=== PATIENT | female | born 1935 | race Caucasian/White ===

== ENCOUNTER 2019-06-10 03:27 | Inpatient (IN) ==
[2019-06-10] MEDS ORDERED: NS 1,000 ML IV PRN (03:38)
--- NOTE | 2019-06-10 04:19 | PROVIDER DOCUMENTATION ---
HPI-Neurological Disorder - General Chief Complaint: STROKE ALERT Stated Complaint: Stroke like symptoms Time Seen by Provider: 06/10/19 03:38 Source: RN/, EMS Unable to obtain history due to:: other (INCOMPREHENSIBLE SPEECH) Allergies/Adverse Reactions: Patient Allergies Allergy/AdvReac Type Severity Reaction Status Date / Time morphine Allergy Mild Unknown Verified 06/10/19 07:04 Sulfa (Sulfonamide Allergy Mild Unknown Verified 06/10/19 07:04 Antibiotics) zolpidem tartrate * Allergy Mild Unknown Verified 06/10/19 07:04 [From Ambien] Home Medications: Home Medication List Medication Instructions Recorded Confirmed Last Taken Type Aspirin EC 81 mg PO DAILY 01/10/14 06/10/19 05/28/14 08:00 History Clopidogrel [Plavix] 75 mg PO DAILY 01/10/14 06/10/19 05/28/14 08:00 History Pregabalin [Lyrica] 200 mg PO BID 01/10/14 06/10/19 05/28/14 08:00 History Trazodone [Desyrel] 100 mg PO DAILY 01/10/14 06/10/19 05/27/14 20:00 History Insulin Detemir [Levemir Flextouch] 12 units SQ DAILY 12/05/14 06/10/19 Unknown History Rosuvastatin Calcium [Crestor] 5 mg PO QAM 12/05/14 06/10/19 Unknown History Acetaminophen [Tylenol] 650 tab PO PRN PRN 05/24/18 06/10/19 Unknown History Lidocaine 5% Oint [Xylocaine 5% 1 appful TOP 4XDAY 05/24/18 06/10/19 Unknown History Oint] Ropinirole HCl 2 mg PO QHS 05/24/18 06/10/19 Unknown History Spironolactone 25 mg PO DAILY 05/24/18 06/10/19 Unknown History Albuterol Sulfate [Proair Hfa] 8.5 gm INHALATION DAILY PRN PRN 06/10/19 06/10/19 Unknown History Benzonatate [Tessalon] 100 mg PO TID PRN PRN 06/10/19 06/10/19 Unknown History Carboxymethylcellulose Sodium 1 drp OPHTHALMIC (EYE) DAILY 06/10/19 06/10/19 Unknown History [Artificial Tears] Ciprofloxacin HCl [Cipro] 500 mg PO BID 06/10/19 06/10/19 Unknown History Clonidine HCl 0.1 mg PO TID PRN PRN 06/10/19 06/10/19 Unknown History Diclofenac Sodium [Diclo Gel] 1 ea TOPICAL Q6H PRN PRN 06/10/19 06/10/19 Unknown History Docusate Sodium [Colace] 100 mg PO DAILY 06/10/19 06/10/19 Unknown History Guaifenesin [Robafen] 200 mg PO Q4H PRN PRN 06/10/19 06/10/19 Unknown History Lisinopril/Hydrochlorothiazide 10 mg PO DAILY 06/10/19 06/10/19 Unknown History [Lisinopril-Hctz 20-25 mg Tab] Melatonin 3 mg PO QHS 06/10/19 06/10/19 Unknown History Memantine HCl 5 mg PO BID 06/10/19 06/10/19 Unknown History Metoprolol Succinate 25 mg PO DAILY 06/10/19 06/10/19 Unknown History Protein Hydrolysate,Milk [Liquid 30 ml PO BID 06/10/19 06/10/19 Unknown History Protein Fortifier] Rivastigmine 9.5 mg ORDERED DAILY 06/10/19 06/10/19 06/10/19 History - History of Present Illness-Neuro Nature of Presenting Problem: A 84 y/o female with PMH of HTN, CAD, DM, CVA with out residual deficits, hyperlipidemia, dementia presents with EMS with c/o R upper extremity weakness, facial weakness. Per EMS they were called for respiratory distress, on arrival they found the pt to be saturating in high 90's on RA and lungs were clear but they found her to have facial droop and RUE weakness. The speech was slurred. Per EMS at baseline pt is ambulatory and participates in all activities at [place]. Pt's speech is incomprehensible. Review of Systems - Adult - REVIEW OF SYSTEMS - ADULT ROS:: unobtainable per condition Constitutional: reports: see HPI Past History - Adult - PAST MEDICAL HISTORY-ADULT Review of Records: reports: Nursing Assessment Review, Medications Reviewed, Social history reviewed & non-contributory. Cardiovascular: reports: HTN, [place] Respiratory: reports: denies history Gastrointestinal: reports: denies history Obstetrical/Gynecological: reports: denies history Genitourinary: reports: denies history Musculoskeletal: reports: denies history Neurological: reports: CVA Endocrine/Immune: reports: Diabetes Other Conditions: reports: denies history - PRIOR SURGERIES/PROCEDURES Surgical/Procedure History: reports: hysterectomy, BTL, other, appendectomy - PRIOR HOSPITALIZATIONS Prior Hospitalizations: reports: none - IMMUNIZATION STATUS Childhood Immunizations: See Nurse Assessment Flu Vaccine: See Nurse Assessment - FAMILY HISTORY Family History: reviewed, not pertinent Physical Exam- Neurological - Physical Exam-Neuro Initial Vital Signs Reviewed: Yes General Appearance: alert, no apparent distress Eye Exam: bilateral eye: normal inspection, PERRL, EOMI HENMT: moist mucous membranes, TMs normal Head Injury: other (Bruise on the R forehead) Neck: supple Respiratory: lungs clear, normal breath sounds, no respiratory distress, no accessory muscle use Cardiovascular: regular rate, rhythm, no edema, no murmur Abdominal Exam: non tender, soft Peripheral Pulses: radial (R): 2+, radial (L): 2+ Extremity: no pedal edema coconut boiler Exam: normal hearing, PERRL, abnormal speech, facial asymmetry, facial droop , facial paresthesias Motor/Sensory: pronator drift (R), weak motor strength RUE Neurologic: abnormal coconut boiler II-XII, facial droop, motor weakness Integumentary: normal color, ecchymosis (multiple over the extremities) Psych/Mental Status: normal mood/affect - Glascow Coma Scale Best Eye Response: (4) open spontaneously Best Verbal Response: (5) oriented Best Motor Response: (6) obeys commands Progress - PLAN OF CARE/RESULTS Progress/Plan/Lab Results: Laboratory Results - last 24 hr 06/10/19 06/10/19 06/10/19 04:11 04:11 04:11 WBC 7.23 RBC 4.36 Hgb 12.9 Hct 38.5 MCV 88.3 MCH 29.6 MCHC 33.5 RDW Std Deviation 13.8 Plt Count 147 MPV 11.6 H Immature Gran % (Auto) 0.3 Neut % (Auto) 72.9 Lymph % (Auto) 14.4 L [place] % (Auto) 9.7 H Eos % (Auto) 2.6 Baso % (Auto) 0.1 Immature Gran # (Auto) 0.02 Neut # (Auto) 5.27 Lymph # (Auto) 1.04 L [place] # (Auto) 0.70 H Eos # (Auto) 0.19 Baso # (Auto) 0.01 PT 13.7 INR 1.04 PTT (Actin FS) 29.5 Sodium 132 L Potassium 4.7 Chloride 95 L Carbon Dioxide 25 Anion Gap 12 BUN 24 H Creatinine 1.2 H Estimated GFR/1.73 m2 43 BUN/Creatinine Ratio 20 Glucose 168 H POC Glucose Calculated Osmolality 272 Calcium 9.5 Total Bilirubin 0.98 AST 14 ALT 8 L Alkaline Phosphatase 65 Troponin T Total Protein 6.3 Albumin 3.7 Globulin 2.6 Albumin/Globulin Ratio 1.4 Urine Source Urine Color Urine Turbidity Urine pH Ur Specific [place] Urine Protein Ur Glucose (Stick) Ur Ketones (Stick) Urine Blood Urine Nitrite Urine Bilirubin Urobilinogen Dipstick Urine Leukocytes Urine WBC (Auto) Urine RBC (Auto) U Epithel Cells (Auto) Urine Bacteria (Auto) Urine Opiates Screen Ur Oxycodone Screen Ur Methadone, Qual Ur Barbiturates Screen Ur Phencyclidine Scrn Ur Amphetamines Screen U Benzodiazepines Scrn Urine Cocaine Screen U Cannabinoids Screen 06/10/19 06/10/19 06/10/19 04:11 04:11 04:26 WBC RBC Hgb Hct MCV MCH MCHC RDW Std Deviation Plt Count MPV Immature Gran % (Auto) Neut % (Auto) Lymph % (Auto) [place] % (Auto) Eos % (Auto) Baso % (Auto) Immature Gran # (Auto) Neut # (Auto) Lymph # (Auto) [place] # (Auto) Eos # (Auto) Baso # (Auto) PT INR PTT (Actin FS) Sodium Potassium Chloride Carbon Dioxide Anion Gap BUN Creatinine Estimated GFR/1.73 m2 BUN/Creatinine Ratio Glucose POC Glucose 166 H Calculated Osmolality Calcium Total Bilirubin AST ALT Alkaline Phosphatase Troponin T < 0.010 Total Protein Albumin Globulin Albumin/Globulin Ratio Urine Source CATH Urine Color YELLOW Urine Turbidity HAZY Urine pH 6.5 Ur Specific [place] 1.013 Urine Protein TRACE A Ur Glucose (Stick) NEGATIVE Ur Ketones (Stick) NEGATIVE Urine Blood SMALL A Urine Nitrite POSITIVE A Urine Bilirubin NEGATIVE Urobilinogen Dipstick NORMAL Urine Leukocytes LARGE A Urine WBC (Auto) TNTC A Urine RBC (Auto) <10 U Epithel Cells (Auto) <10 Urine Bacteria (Auto) 4+ Urine Opiates Screen Ur Oxycodone Screen Ur Methadone, Qual Ur Barbiturates Screen Ur Phencyclidine Scrn Ur Amphetamines Screen U Benzodiazepines Scrn Urine Cocaine Screen U Cannabinoids Screen 06/10/19 04:26 WBC RBC Hgb Hct MCV MCH MCHC RDW Std Deviation Plt Count MPV Immature Gran % (Auto) Neut % (Auto) Lymph % (Auto) [place] % (Auto) Eos % (Auto) Baso % (Auto) Immature Gran # (Auto) Neut # (Auto) Lymph # (Auto) [place] # (Auto) Eos # (Auto) Baso # (Auto) PT INR PTT (Actin FS) Sodium Potassium Chloride Carbon Dioxide Anion Gap BUN Creatinine Estimated GFR/1.73 m2 BUN/Creatinine Ratio Glucose POC Glucose Calculated Osmolality Calcium Total Bilirubin AST ALT Alkaline Phosphatase Troponin T Total Protein Albumin Globulin Albumin/Globulin Ratio Urine Source Urine Color Urine Turbidity Urine pH Ur Specific [place] Urine Protein Ur Glucose (Stick) Ur Ketones (Stick) Urine Blood Urine Nitrite Urine Bilirubin Urobilinogen Dipstick Urine Leukocytes Urine WBC (Auto) Urine RBC (Auto) U Epithel Cells (Auto) Urine Bacteria (Auto) Urine Opiates Screen NONE DETECTED Ur Oxycodone Screen NONE DETECTED Ur Methadone, Qual NONE DETECTED Ur Barbiturates Screen NONE DETECTED Ur Phencyclidine Scrn NONE DETECTED Ur Amphetamines Screen NONE DETECTED U Benzodiazepines Scrn NONE DETECTED Urine Cocaine Screen NONE DETECTED U Cannabinoids Screen NONE DETECTED Orders Category Date Time Status Admit - [facility] Routine AdmDCTranf 06/10/19 07:20 Active Activity - Strict Bedrest Q1D Care 06/10/19 07:20 Active Apply Mechanical Device [QM] ORDERED Care 06/10/19 07:20 Active Aspiration Precautions DIRECTED Care 06/10/19 07:20 Active Cardiac Monitoring DIRECTED Care 06/10/19 03:39 Completed Elevate Head of Bed DIRECTED Care 06/10/19 07:20 Active FSBS/Accucheck Result AC + HS Care 06/10/19 07:20 Active Finger Stick Blood Sugar (ED) DIRECTED Care 06/10/19 03:39 Completed Jenkins Cath Insertion ORDERED Care 06/10/19 03:39 Active IV Insertion ORDERED Care 06/10/19 07:20 Active Intake and Output-Strict ORDERED Care 06/10/19 07:20 Active Misc. NRSG Communication Order DIRECTED Care 06/10/19 03:39 Completed Neurological Check Q1h Care 06/10/19 07:20 Active Nursing- MD Consult Request ROUTINE Care 06/10/19 07:20 Completed Saline Loc NOW Care 06/10/19 03:39 Active Vital Signs Order Q 4-HR ASSESS Care 06/10/19 07:20 Active Z-Document. for Tele Applied ORDERED Care 06/10/19 07:20 Active Physician/Provider Consults Routine Cons 06/10/19 07:20 Ordered Social Service Consult Routine Cons 06/10/19 07:20 Active NPO Diet 06/10/19 Lunch Completed CHEST-PORTABLE [RAD] Stat Exams 06/10/19 03:[address] HEAD/C-SPINE W/O CONTRAST [CT] Stat Exams 06/10/19 03:30 Completed MRI BRAIN W/WO CONTRAST [MRI] Routine Exams 06/11/19 07:00 Ordered CBC WITH ELECTRONIC DIFF [HEME] Stat Lab 06/10/19 04:11 Completed COMPREHENSIVE METABOLIC PANEL [CHEM] Stat Lab 06/10/19 04:11 Completed LIPID PROFILE W/DIR LDL [LIPIDS] Routine Lab 06/11/19 06:00 Ordered PROTIME WITH INR [COAG] Stat Lab 06/10/19 04:11 Completed PTT [COAG] Stat Lab 06/10/19 04:11 Completed TROPONIN T Stat Lab 06/10/19 04:11 Completed URINALYSIS W/POSS RFLX CULT [URINALYSIS] Stat Lab 06/10/19 04:26 Completed URINE CULTURE [RM] Routine Lab 06/10/19 04:56 Received URINE DRUG SCREEN Stat Lab 06/10/19 04:26 Completed 0.9% Sodium Chloride Inj [Ns] 1,000 ml Med 06/10/19 07:20 Active IV 75 mls/hr 0.9% Sodium Chloride Inj [Ns] 1,000 ml Med 06/10/19 03:38 Discontinued IV 999 mls/hr Acetaminophen [Tylenol] Med 06/10/19 07:20 Active 650 mg PO Q6H PRN PRN Albuterol Sulfate Inhaler [Ventolin Hfa] Med 06/10/19 07:20 Active 1 puff INH DAILY PRN PRN Aspirin Med 06/11/19 09:00 Active 325 mg PO DAILY Aspirin Med 06/10/19 05:33 Discontinued 325 mg PO NOW ONE Aspirin EC Med 06/10/19 09:00 Discontinued 81 mg PO DAILY Benzonatate [Tessalon] Med 06/10/19 07:20 Active 100 mg PO TID PRN PRN CefTRIAXONE [Rocephin] 1 gm Med 06/10/19 07:20 Active 0.9% Sodium Chloride Inj [Ns] 50 ml IV Q24H Clonidine [Catapres] Med 06/10/19 07:20 Active 0.1 mg PO TID PRN PRN Clopidogrel [Plavix] Med 06/10/19 09:00 Active 75 mg PO DAILY Docusate Sodium [Colace] Med 06/10/19 09:00 Active 100 mg PO DAILY Insulin Lispro [Humalog] Med 06/10/19 07:20 Active See Protocol SUBQ 0700,1100,1600,2100 Melatonin Med 06/10/19 21:00 Active 3 mg PO QHS Memantine [Namenda] Med 06/10/19 09:00 Active 5 mg PO BID Metoprolol Succinate E.r. [Toprol Xl] Med 06/10/19 09:00 Active 25 mg PO DAILY Ondansetron [Zofran] Med 06/10/19 07:20 Active 4 mg IV Q4H PRN PRN Patient's Own Med Med 06/10/19 09:00 Active 1 each PO BID Polyvinyl Alcohol Eye Drops [Tearisol Oph Solution] Med 06/10/19 09:00 Active 0 ml BOTH EYES DAILY Pregabalin [Lyrica] Med 06/10/19 09:00 Active 200 mg PO BID ROSUVAstatin [Crestor] Med 06/10/19 09:00 Active 5 mg PO QAM Rivastigmine [Exelon 9.5MG/24Hrs] Med 06/10/19 09:00 Active 1 each TD DAILY Ropinirole [Requip] Med 06/10/19 21:00 Active 2 mg PO QHS Spironolactone [Aldactone] Med 06/10/19 09:00 Active 25 mg PO DAILY Trazodone [Desyrel] Med 06/10/19 21:00 Active 100 mg PO QPM MDI Treatments Stat Oth 06/10/19 07:20 Completed Oxygen Device Routine Oth 06/10/19 07:20 Completed Telemetry [OM.EQ] Routine Oth 06/10/19 07:20 Active Carotid Ultrasound Routine Ther 06/10/19 07:20 Completed EKG [EKG] Stat Ther 06/10/19 03:39 Draft Echo Spec/Color Doppler Routine Ther 06/10/19 07:20 Completed Physical Therapy Eval/Treatment [OM.PT] Routine Ther 06/10/19 07:20 Active Speech Evaluation [OM.SPT] Routine Ther 06/10/19 07:20 Active Transfer/Admit Order [TRANSFER] Routine Transfer 06/10/19 05:37 Completed Result Diagrams: 06/10/19 04:11 06/10/19 04:11 - EKG 1 Time of EKG reading by physician:: 03:53 EKG Interpretation (*Must complete 3 of following elements*): Normal Rate: 71 [place]: normal QRS: normal AL Interval: normal ST Wave: normal Comments: NSR - CONSULTS/PCP/HOSPITALIST Notification #1 *Consult/PCP/Hospitalist*: d/w Transfer center of Time Discussed: 04:10 Consult Disposition: other (recommended to push images and they will consult neurosurgery and call back.) #2 Consult: d/w Dr Hunt, Neurosurgery , Time Discussed: 04:54 Consult Disposition: other (He reviewed the CT and felt tehre was no need for any surgery, Per him the pt does not have a subdural hematoma. Requested transfer center to [facility].) #3 Consult: d/w Dr Fierro, Neurology at Time Discussed: 17:00 Consult Disposition: Admit (advised admission at [facility], routine stroke up.) Departure - Departure Date of Disposition Decision: 06/10/19 Time of Disposition Decision: 05:15 DIAGNOSIS: CVA (cerebral vascular accident) Disposition: ADMITTED INPATIENT 09 Certified Medical Emergency: Emergent Condition: Stable - Critical Care Note This patient required my direct & personal management of CC.: No Attestation - Physician/ EVER Attestation Patient care was provided by Advanced Practice Provider:: No The physician spent face to face time with patient:: Yes Advanced Practice Provider documentation review:: Supervising physician onsite and consulted in the evaluation and care of this patient. The physician did have a face to face encounter with the patient. - NIH Stroke Scale NIH Type: Initial Evaluation Level of Consciousness: 1-Drowsy, but arousable with minimal stimulation LOC Questions (ask month and age): 2-Both Incorrect LOC Commands (ask to open & close eyes;make a fist, let go): 0-Obeys Both Correctly Best Gaze (horizontal eye movement): 0-Normal Visual (use finger movement, counting or visual threat): 0-No Visual Loss Facial Palsy (show teeth or raise eyebrows & close eyes tght: 1-Minor Paralysis Motor Function-left arm: 0-Normal Motor Function-right arm: 1-Drift Motor Function-left le-Normal Motor Function-right le-Drift Limb Ataxia(okcfyf-[id number]-canbyd, or heel to figueroa): 0-Untestable Sensory(pin prick to face,arms,trunk,legs-compare side/side): 1-Mild to Moderate Decrease in Sensation Best Language(name item/read sentence.Ex-Down to Earth): 1-Mild to Moderate Aphasia Dysarthria(Pt read words or say words Ex.Mama,Tip-Top,Thanks: 2-Near Unintelligible Extinction and Inattention: 0-Normal NIH Total Score: 10
[2019-06-10 04:31] LABS: BASO# 0.01 X1000 (0.0-0.2); BASO% 0.1 % (0.0-0.8); EOS# 0.19 X1000 (0.0-0.7); EOS% 2.6 % (0.0-10.0); HEMATOCRIT 38.5 % (37.0-47.0); HEMOGLOBIN 12.9 g/dL (12.0-16.0); IMM GRAN# 0.02 X1000 (0.0-0.04); IMM GRAN% 0.3 % (0.0-0.5); LYMPH# 1.04 X1000 (1.2-3.4); LYMPH% 14.4 % (20.5-51.1); MCH 29.6 PG (27-31); MCHC 33.5 g/dL (33-37); MCV 88.3 FL (81-99); MONO% 9.7 % (1.7-9.3); MPV 11.6 FL (7.4-10.4); NEUT# 5.27 X1000 (1.4-6.5); NEUT% 72.9 % (42.2-75.2); PLT 147 X1000 (130-400); RBC 4.36 XMIL (4.2-5.4); RDW 13.8 % (11.5-14.5); WBC 7.23 X1000 (4.8-10.8)
[2019-06-10 04:34] LABS: URINE SOURCE CATH
[2019-06-10 04:38] LABS: INR 1.04; PROTIME 13.7 Seconds (11.0-16.0)
[2019-06-10 04:39] LABS: PTT 29.5 Seconds (22.3-41.8)
[2019-06-10 04:47] LABS: UR AMPHETAMINES QUAL NONE DETECTED (NONE DETECT); UR BARBITUATES QUAL NONE DETECTED (NONE DETECT); UR BENZODIAZEPIN QUAL NONE DETECTED (NONE DETECT); UR CANNABINOIDS QUAL NONE DETECTED (NONE DETECT); UR COCAINE QUAL NONE DETECTED (NONE DETECT); UR METHADONE QUAL NONE DETECTED (NONE DETECT); UR OPIATES QUAL NONE DETECTED (NONE DETECT); UR OXYCODONE QUAL NONE DETECTED (NONE DETECT); UR PCP QUAL NONE DETECTED (NONE DETECT)
[2019-06-10 04:48] LABS: ALB/GLOB RATIO 1.4; ALBUMIN 3.7 g/dL (3.5-5.0); CALCIUM 9.5 mg/dL (8.8-10.2); CREATININE 1.2 mg/dL (0.5-0.9); POTASSIUM 4.7 mmol/L (3.5-5.1); TOTAL BILIRUBIN 0.98 mg/dL (0.20-1.00); TOTAL PROTEIN 6.3 g/dL (6.3-8.3)
[2019-06-10 04:50] LABS: BILIRUBIN URINE NEGATIVE (NEGATIVE); BLOOD URINE SMALL (NEGATIVE); COLOR YELLOW; GLUCOSE URINE NEGATIVE (NEGATIVE); KETONE URINE NEGATIVE (NEGATIVE); LEUKOCYTES URINE LARGE (NEGATIVE); NITRITE URINE POSITIVE (NEGATIVE); PH URINE 6.5; PROTEIN URINE TRACE mg/dL (NEGATIVE); SP GRAVITY URINE 1.013; TURBIDITY URINE HAZY (CLEAR); UROBILINOGEN URINE NORMAL (NORMAL)
[2019-06-10 04:52] LABS: UR EPITHELIAL CELLS <10 /HPF (<10); URINE BACTERIA 4+ /HPF; URINE RBC <10 /HPF (<10); URINE WBC TNTC /HPF (<10)
--- NOTE | 2019-06-10 05:21 | EKG Report ---
Test Performed on : 06/10/2019 03:53:12 AM Test Reason : AMS Blood Pressure : / mmHG Vent. Rate : 071 BPM Atrial Rate : 071 BPM P-R Int : 188 ms QRS Dur : 076 ms QT Int : 404 ms P-R-T Axes : 000 -20 027 degrees QTc Int : 439 ms Normal sinus rhythm. Normal ECG When compared with ECG of 24-MAY-2018 16:49, No significant change was found Unconfirmed Result
[2019-06-10] MEDS ORDERED: ASPIRIN PO ONE (05:33)
--- NOTE | 2019-06-10 06:02 | Diag Imaging Result Doc PS360 ---
EXAM : CT HEAD/C-SPINE W/O CONTRAST HISTORY: FALL TECHNIQUE: 1. CT head without contrast 2. CT cervical spine without contrast COMPARISON: 05/24/2018 FINDINGS: Head: No parenchymal hemorrhage. No epidural or subdural hematoma. No subarachnoid hemorrhage. There is prominent atrophy with chronic microvascular ischemic changes. Scattered old lacunar infarcts. No mass identified on this noncontrasted exam. No hydrocephalus. No skull fracture. Cervical spine: There is reversal of the normal curvature. Prominent degenerative changes in the mid and lower cervical spine. No precervical soft tissue swelling. No fracture. At least moderate atherosclerosis in the carotid bulbs. IMPRESSION: CT head: 1. No hemorrhage. No injury. 2. Atrophy with chronic microvascular ischemic changes and old lacunar infarcts. Cervical spine: No acute fracture. A preliminary report was given at 4:01 AM This exam was performed using automated exposure control, adjustment of mA or kV according to patient size, and/or use of iterative reconstruction technique. Electronically signed by Robson Love 06/10/2019 6:00 AM
--- NOTE | 2019-06-10 06:45 | HISTORY AND PHYSICAL ---
CHIEF COMPLAINT: Stroke-like symptoms. HISTORY OF PRESENT ILLNESS: Ms. Zepeda is an 84-year-old female with a history of hypertension, coronary artery disease, diabetes mellitus type 2, previous CVA with residual right- sided deficits, hyperlipidemia and vascular dementia who comes in from [facility] after having new onset right-sided facial droop and expressive aphasia yesterday. She was sent into the emergency room for evaluation. CT scan did reveal what appeared to be a new left-sided CVA. There was originally some concern for possible subdural hematoma; however, the ER provider spoke with Neurosurgery at [facility], Dr. Carlton, I believe, who stated that there was no need for surgery, that it was not a subdural hematoma. They then spoke with Dr. Fierro with Neurology at [facility] who advised regular admission to [facility] for a routine stroke workup. She will be admitted to the medical floor for further evaluation and treatment. PAST MEDICAL HISTORY: See HPI. PREVIOUS SURGICAL HISTORY: 1. Hysterectomy. 2. BTL. 3. Appendectomy. FAMILY HISTORY: This cannot be reviewed due to patient's mentation. SOCIAL HISTORY: Lives at [facility]. No alcohol, tobacco or illicit drugs. ALLERGIES: Morphine, sulfa, and Ambien. HOME MEDICATIONS: A list of all medications has not been reconciled. An order was placed for nursing to reconcile home medications. These will be restarted when appropriate. REVIEW OF SYSTEMS: Fourteen point review of systems conducted with the patient. This was limited related to her mentation. She denies complaint. Pertinent positives per admission are listed above in the HPI. PHYSICAL EXAMINATION: VITAL SIGNS: Temperature 98.6 degrees, pulse 76, respirations 20, blood pressure 161/86, oxygen saturation 96% on room air. GENERAL: 84-year-old female oriented to person, place, somewhat to situation. Disoriented to time. She is clearly confused. She has ripped her IV out. However, she does try to follow most commands. She has slurring of speech and some expressive aphasia. But she is in no acute distress. HEENT: Head is atraumatic, normocephalic. Pupils equal, round and reactive to light. Extraocular eye movement appears to be intact. Sclerae anicteric. Conjunctivae pink. Oral mucosa is dry. Lips are chapped and cracking. She has right-sided facial droop noted. NECK: Supple. No JVD. No thyromegaly. Trachea is midline. No cervical lymphadenopathy. CARDIAC: S1, S2 appreciated. No murmurs, gallops, rubs. LUNGS: Clear to auscultation bilaterally. No rhonchi, wheezes, rales. Symmetrical rise and fall of respirations. ABDOMEN: Soft, nondistended, nontender. Bowel sounds present in all 4 quadrants. Normoactive. No pulsatile mass. No organomegaly. EXTREMITIES: No cyanosis, clubbing or edema. GENITOURINARY: No bladder distention. Patient voids. Otherwise deferred. NEUROLOGICAL: Right-sided davison drift. Right-sided facial droop. Decreased strength in right upper and lower extremities; however, she did have deficits from an old stroke and her baseline is not known. She is roughly 3/5 on right upper and lower and 4/5 left upper and lower extremities. She does have some slurring of speech and mild expressive aphasia. DIAGNOSTIC DATA: CT of the head shows a left acute infarct. Chest x-ray: No infiltrates, edema. Grossly normal. LABORATORY DATA: CBC within normal limits. Sodium 132, potassium 4.7, chloride 95, carbon dioxide 25, BUN 24, creatinine 1.2, glucose 168. Urine leuko esterase positive, nitrate positive, too numerous to count WBCs, 4+ bacteria. ASSESSMENT AND PLAN: 1. Acute left-sided CVA. Consult Neurology. MRI, echocardiogram, carotid ultrasound. Continue 325 aspirin p.o. daily. 2. Urinary tract infection. Rocephin 1 gram q.24 hours. Urine cultures are pending. 3. Hypertension. We will hold antihypertensive, allow for permissive hypertension at this time. We will restart when appropriate. 4. Diabetes mellitus. Fingerstick blood sugar with sliding scale insulin before meals and at bedtime. 5. Hyperlipidemia. Continue statin. Further recommendation per patient's clinical course. Dictated by KHARI Payan for Moy Posey MD cc: KHARI Payan MD
[2019-06-10] MEDS ORDERED: CATAPRES PO PRN (07:20)
[2019-06-10] MEDS ORDERED: ZOFRAN IV PRN (07:20)
[2019-06-10] MEDS ORDERED: VENTOLIN HFA INH PRN (07:20)
[2019-06-10] MEDS ORDERED: TYLENOL PO PRN (07:20)
[2019-06-10] MEDS ORDERED: TESSALON PO PRN (07:20)
--- NOTE | 2019-06-10 07:49 | Diag Imaging Result Doc PS360 ---
EXAM: CHEST-PORTABLE INDICATION: stroke like symptoms TECHNIQUE: One view COMPARISON: 05/24/2018 FINDINGS: There is evidence of prior granulomatous disease, stable. Mild lingular scarring is stable. There is no discrete pleural fluid collection or pneumothorax. The cardiac silhouette is borderline prominent but stable. IMPRESSION: Mild lingular scarring and borderline cardiomegaly. No definite acute chest pathology, otherwise. Electronically signed by Roel Robles 06/10/2019 7:47 AM
[2019-06-10] MEDS ORDERED: ASPIRIN EC PO SCH (09:00)
[2019-06-10] MEDS: HUMALOG SUBQ SCH ×3 (12:04→21:37)
[2019-06-10] MEDS: NS 1,000 ML IV SCH (12:20)
[2019-06-10] MEDS: ROCEPHIN 1 GM in NS 50 ML IV SCH (12:21)
--- NOTE | 2019-06-10 12:26 | CONSULTATION ---
DATE OF CONSULTATION: 06/10/2019 Ms. Zepeda is 84 years old, transferred from the correction with question of recent stroke. She is not able to provide detailed history based on her baseline dementia. History from review of the medical record and from discussion with attentive daughter at the bedside is that she has been forgetful for 6 to 12 months, gradually more prominent in recent months. She was started on rivastigmine patch a few months ago and tolerated that. Rivastigmine dose is 9.5 mg daily now. Memantine was added more recently and she is tolerating memantine 5 mg b.i.d. now. Daughter has not noticed major cognitive improvement with those medicines on board. There is history of prior stroke with right-sided weakness. She was noted to have new right facial drooping and apparent dysphasia yesterday. She presented to the hospital and was admitted. She seems improved today, according to daughter. There is history that she may have been more unsteady with her transfers from bed to chair and commode in recent days. There is evidence of some bruising, raising question of falls, but I do not have any documentation of falling. Daughter believes there was a neurologic change 3 days ago, which was stable over the next few days and then worse on the night prior to admission. Her home medicine list from the correction includes 24 entries. Of these, at least 5 have significant SAMPLE COORDINATOR activity including memantine and rivastigmine as above, ropinirole 2 mg at bedtime, trazodone 100 mg daily, Lyrica 200 mg b.i.d. Vital sign record shows systolic blood pressures 120s-160s. Heart rate has been 60s-70s. She has been afebrile. Lab shows BUN 24, which is a little above baseline. Blood sugars have been 160s. Chemistry otherwise unremarkable. Urine drug screen was all negative. Brain imaging this admission includes noncontrast CT of the head showing some atrophy and microvascular ischemic changes but no evidence of acute infarction or bleeding. There is past history of hypertension, ischemic heart disease, diabetes mellitus type 2, dyslipidemia, and dementia as above. On exam, Ms. Zepeda is supine, awake, alert, attentive. She followed simple commands consistently. She followed commands requiring right/left distinction and digit distinction. She did well with bedside repeating and naming. Her speech is slow and very dysarthric, very difficult to understand but when I know what she is attempting to say, I can understand her words. I did not test her cognitive function. She has full visual dykes tested by confrontational finger counting. Extraocular movements are good horizontally and slightly diminished in upgaze, consistent with age. Facial motility is diminished on the right in an upper motor neuron pattern. Palate is midline. Tongue protrudes consistently to the right. She has good power in the left limbs. Strength grades 3/5 at the right deltoid, 4/5 in the right paper inspector, 3/5 at the right anterior tibialis. Plantar response is silent bilaterally. She reports good pinprick appreciation symmetrically over the limbs. Her responses on proprioception testing were inconsistent bilaterally. I did not test her gait. She did well with left [id number]. She was able to bring her right finger within 6 inches of her nose without evidence of cerebellar deficit. I did not see any tremor. IMPRESSION: 1. Apparent new right hemiparesis. There was report of possible language disturbance earlier but I cannot document dysphasia now. She has marked dysarthria, approaching anarthria, but not definite loss of language function. I do not find vision disturbance or sensory deficit. In light of these relatively pure motor findings, I wonder about a subcortical left hemisphere or brainstem infarction. Negative CT is reassuring but does not exclude acute ischemic infarction. Brain MRI is ordered. In light of her age and clinical course, particularly with baseline dementia, I suspect she will not be a candidate for aggressive management. 2. Baseline dementia. She has tolerated rivastigmine and memantine. 3. Polypharmacy. Daughter has been concerned that patient sometimes appears sluggish and drowsy. We discussed the possibility that medication and combination of medications may sometimes be responsible. No urgent suggestion from a neurology standpoint. I would continue aspirin, continue treating blood pressure cautiously, continue statin, continue rivastigmine and memantine at current doses. Later, memantine dose might be increased. Would continue treating blood sugar aggressively. Further plans will depend on her clinical course and MRI report. Thanks for asking Neurology to see Ms. Zepeda. cc: MD ALEE Gu III
[2019-06-10] MEDS: CRESTOR PO SCH (12:28)
[2019-06-10] MEDS: EXELON 9.5MG/24HRS TD SCH (12:28)
[2019-06-10] MEDS: NAMENDA PO SCH ×2 (12:28→21:36)
[2019-06-10] MEDS: PLAVIX PO SCH (12:28)
[2019-06-10] MEDS: COLACE PO SCH (12:28)
[2019-06-10] MEDS: ALDACTONE PO SCH (12:28)
[2019-06-10] MEDS: TOPROL XL PO SCH (12:28)
[2019-06-10] MEDS: TEARISOL OPH SOLUTION BOTH EYES SCH (12:29)
[2019-06-10] MEDS: PATIENT'S OWN MED PO SCH ×2 (12:30→21:36)
[2019-06-10] MEDS: LYRICA PO SCH ×2 (12:40→21:36)
--- NOTE | 2019-06-10 13:09 | PROGRESS NOTE ---
DATE: 06/10/2019 SUBJECTIVE: The patient is resting comfortably in bed. She does have some right-sided weakness around 3/5. As per the daughter, she had a previous stroke in 2012, but she noticed this past Friday four days ago that she has some facial weakness and slurred speech. Probably, this patient had a new stroke. We did an MRI to corroborate this information due to her right-sided weakness. OBJECTIVE: Vital Signs: Temperature 98 degrees, pulse 67, respiratory rate 20, blood pressure 142/73 and oxygen saturation 98 percent 2 L of nasal cannula. HEENT: Head normocephalic. No trauma. PERRLA. Neck: Supple. No JVD. No masses. Central trachea. Chest: Clear to auscultation. No wheezing. No rales. Abdomen: Soft, nontender, and nondistended. No hepatosplenomegaly. Extremities: No edema. No clubbing. No cyanosis. Neurological: This patient is awake. She is alert. She is following commands. She does have right-sided hemiparesis. I would say 3/5. Sensation has decreased. LABORATORY: WBC 7.2, hemoglobin 12.9, hematocrit 38.5, and platelets 147,000. Sodium 132, potassium 4.7, chloride 95, bicarbonate 25, BUN 24, creatinine 1.2, glucose 168, and calcium 9.5. AST 14, ALT 8, and alkaline phosphatase 65. Urinalysis with leukocytes, small blood, and nitrates with 4+ bacteria. ASSESSMENT AND PLAN: 1. New right hemiparesis, probably due to new stroke on the left brain territory. I need an MRI to corroborate this information. We will continue with the same management for now. Neurology Department on board. 2. Baseline dementia. Continue with rivastigmine and memantine. 3. Polypharmacy. We will try to monitor her medications. We will continue to monitor. 4. Prior history of cerebrovascular accident in 2012. Aware. 5. Generalized weakness, which is not new. Apparently, she is basically bed bound, but she was able to transfer from the bed to the wheelchair. 6. Peripheral neuropathy. Continue with Lyrica. 7. As per the daughter, she has a history of CHF. Aware. We will continue to monitor. We will avoid fluid overload. 8. Urinary tract infection. Continue with ceftriaxone. 9. I had a conversation with the patient and the daughter at the bedside about her advanced directive. After a 15 to 20 minutes discussion about her resuscitation status, they have decided to be DNR. cc: Kunal Petersen MD
[2019-06-10] MEDS: DESYREL PO SCH (21:34)
[2019-06-10] MEDS: REQUIP PO SCH (21:35)
[2019-06-10] MEDS: MELATONIN PO SCH (21:36)
[2019-06-11] MEDS: NS 1,000 ML IV SCH ×3 (01:59→23:20)
[2019-06-11 05:23] LABS: BASO# 0.01 X1000 (0.0-0.2); BASO% 0.1 % (0.0-0.8); EOS# 0.29 X1000 (0.0-0.7); HEMATOCRIT 36.8 % (37.0-47.0); HEMOGLOBIN 12.2 g/dL (12.0-16.0); LYMPH# 0.91 X1000 (1.2-3.4); LYMPH% 12.5 % (20.5-51.1); MCH 29.5 PG (27-31); MCHC 33.2 g/dL (33-37); MCV 89.1 FL (81-99); MONO# 0.65 X1000 (0.11-0.59); MONO% 8.9 % (1.7-9.3); MPV 11.5 FL (7.4-10.4); NEUT# 5.41 X1000 (1.4-6.5); NEUT% 74.5 % (42.2-75.2); PLT 139 X1000 (130-400); RBC 4.13 XMIL (4.2-5.4); RDW 13.5 % (11.5-14.5); WBC 7.27 X1000 (4.8-10.8)
[2019-06-11 05:51] LABS: CALCIUM 8.8 mg/dL (8.8-10.2); POTASSIUM 4.5 mmol/L (3.5-5.1)
[2019-06-11] MEDS: HUMALOG SUBQ SCH ×4 (06:37→21:00)
--- NOTE | 2019-06-11 08:27 | Diag Imaging Result Doc PS360 ---
EXAM: CHEST-2 VIEWS HISTORY: aspiration risk TECHNIQUE: Two views COMPARISON: 06/10/2019 FINDINGS: The lungs are hyperexpanded. Likely scarring in the left base. The heart is not enlarged. The vessels are not distended. There are no infiltrates. No pleural effusions. Left Granuloma. IMPRESSION: No pneumonia. Electronically signed by Robson Love 06/11/2019 8:25 AM
[2019-06-11] MEDS: ALDACTONE PO SCH (09:41)
[2019-06-11] MEDS: ASPIRIN PO SCH (09:41)
[2019-06-11] MEDS: ROCEPHIN 1 GM in NS 50 ML IV SCH (09:48)
--- NOTE | 2019-06-11 11:20 | ECHO REPORT ---
ORDER DATE: 06/10/2019 ECHOCARDIOGRAPHIC MEASUREMENTS: 1. Septal thickness 1.0. 2. Left ventricular end-diastolic diameter 4.2. 3. Left ventricular end-systolic diameter 2.7. 4. Aortic root 2.6. 5. Left atrium 3.7. SUMMARY: 1. Technically difficult study due to limited acoustic window quality. 2. Very mild sclerosis of trileaflet aortic valve demonstrated with normal aortic valve opening evident. The peak gradient across the aortic valve is less than 10 mmHg. There is mild aortic regurgitation. Mild mitral annular calcification is demonstrated. There is trace mitral regurgitation. Tricuspid and pulmonic valves are without evidence of structural abnormality with mild tricuspid regurgitation and trace pulmonic insufficiency. The estimated systolic PA pressure by Doppler is 30 mmHg. The aortic root is normal in size. 3. Normal left ventricular dimensions demonstrated. Estimated left ventricular ejection fraction appears to be at least 60%. No regional wall motion abnormalities are appreciated. Doppler suggests grade 1 left ventricular diastolic dysfunction. The left atrium is normal in size. The apical views are difficult and foreshortened the heart. Nevertheless, the right ventricle and right atrium appeared mildly enlarged. 4. No pericardial effusion. 5. Appearance of inferior vena cava suggests normal central venous pressure. cc: MD Edson Kemp CRNP
--- NOTE | 2019-06-11 12:22 | Diag Imaging Result Doc PS360 ---
MRI BRAIN W/WO CONTRAST - 06/11/2019 INDICATION: stroke COMPARISON: Head CT 06/10/2019 FINDINGS: There is an area of restricted diffusion in the left periventricular white matter extending down to the lentiform nuclei of the basal ganglia. This indicates a recent microvascular infarction. There is extensive cerebral white matter we adenosis from chronic microvascular ischemia. No intracranial mass or hemorrhage. IMPRESSION: Recent left periventricular and basal ganglia white matter microvascular infarction. Advanced cerebral chronic microvascular ischemia. Electronically signed by Ilya Wilkes 06/11/2019 12:20 PM
[2019-06-11] MEDS: COLACE PO SCH (14:44)
[2019-06-11] MEDS: CRESTOR PO SCH (14:44)
[2019-06-11] MEDS: LYRICA PO SCH ×2 (14:45→20:57)
[2019-06-11] MEDS: EXELON 9.5MG/24HRS TD SCH (14:45)
[2019-06-11] MEDS: NAMENDA PO SCH ×2 (14:45→20:57)
[2019-06-11] MEDS: PATIENT'S OWN MED PO SCH ×2 (14:45→22:29)
[2019-06-11] MEDS: PLAVIX PO SCH ×2 (14:46→18:12)
--- NOTE | 2019-06-11 14:49 | PROGRESS NOTE ---
DATE: 06/11/2019 Ms. Zepeda has not had major neurologic change overnight. Family at the bedside reports continued problems with speech. She was able to swallow yesterday. Family has not observed her swallowing today. At times, she has seemed a little bit sluggish today, but she has never been poorly responsive. Brain MRI this morning done with and without contrast shows an area of restricted diffusion in the left periventricular white matter consistent with acute ischemic infarction. Vital sign record shows systolic blood pressures down to 104 late yesterday but 140s-160s since then. Echocardiogram did not show source of embolus. I would continue permitting moderate blood pressure elevation, continue hydration, continue statin, continue aspirin. For now, would continue rivastigmine patch and memantine at current doses. Each of these might be increased later as an outpatient. No urgent suggestion from Neurology standpoint. Her age and baseline dementia are relative negative factors regarding prognosis for recovery. Time will tell. cc: Ravindra Brumfield III, MD MTDD
[2019-06-11] MEDS: TOPROL XL PO SCH (14:53)
[2019-06-11] MEDS: TEARISOL OPH SOLUTION BOTH EYES SCH (14:53)
--- NOTE | 2019-06-11 16:49 | PROGRESS NOTE ---
DATE: 06/11/2019 SUBJECTIVE: The patient is resting comfortably in bed. She still has some right-sided weakness around 3/5, but she seems to be a little bit better compared with yesterday. She has been having also some trouble swallowing and I talked to the family about it. I will monitor this patient during the weekend and hopefully I will discharge this patient next Friday. We do have an MRI of the head that showed a recent left periventricular and basal ganglia white matter microvascular infarction, and she also has advanced adenosis from chronic microvascular ischemia. Family members at the bedside, all their questions all their questions were answer. Yesterday we were concerned about aspiration pneumonia on this patient. We did an x-ray today and she seems to be fine, no pneumonia. PHYSICAL EXAMINATION: Temperature 97.4 degrees, pulse respiratory rate 18, blood pressure 169/71, oxygen saturation 100% on 1 L nasal cannula.HEENT: HEENT head normocephalic, no trauma. PERRLA. Neck: Supple. No JVD. No masses. Central trachea. Chest: Clear to auscultation. No wheezing. No rales. Abdomen: Soft, nontender, nondistended. No hepatosplenomegaly. Extremities: No edema, no clubbing, no cyanosis. Neurological: The patient is awake she is alert. She is answering most of my questions she is following commands. She does have right- sided weakness, hemiparesis, I would say 3/5 with stable sensation, I believe she is getting a little bit better but she has been having problem talking, slurred speech. LABORATORY: WBC 7.2, hemoglobin 12.2, hematocrit 36.8, platelets 139,000. Sodium 137, potassium 4.5, chloride 103, bicarbonate 23, BUN 17, creatinine 1, glucose 157, calcium 8.8. Triglyceride 127, cholesterol 141, LDL 81, HDL 44. ASSESSMENT AND PLAN: 1. Acute stroke at the level of the periventricular and basal ganglia. This indicates a recent microvascular infarction, there is extensive severe white matter with adenosis from chronic microvascular ischemia but no hemorrhage or mass. We will continue with same management for now. Neurology Department following this patient closely. She will need to go back to her place and do some rehab. In the meantime, we will work with speech therapy, occupational therapy and physical therapy and we will try to teach her how to eat right now. 2. Baseline dementia, aware. Continue with same management. 3. Polypharmacy. We will try to monitor her medications. 4. Prior history of is cerebrovascular accident 2012, aware. 5. Generalized weakness, which is not new, but now she has this right-sided weakness. 6. Peripheral neuropathy continue with Lyrica clear. 7. As per the daughter she has congestive heart failure, aware, continue to monitor. We will avoid fluid overload. She is getting just normal saline at 75 mL/h which probably I will stop during the weekend. 8. Urinary tract infection continue with ceftriaxone. This patient is Do Not Resuscitate level 1. cc: Kunal Petersen MD
[2019-06-11] MEDS: REQUIP PO SCH (20:56)
[2019-06-11] MEDS: DESYREL PO SCH (20:57)
[2019-06-11] MEDS: MELATONIN PO SCH (20:58)
[2019-06-12] MEDS: HUMALOG SUBQ SCH ×4 (06:15→20:50)
[2019-06-12 06:17] LABS: CALCIUM 8.6 mg/dL (8.8-10.2); POTASSIUM 3.9 mmol/L (3.5-5.1)
[2019-06-12] MEDS: ROCEPHIN 1 GM in NS 50 ML IV SCH (06:20)
[2019-06-12] MEDS: LYRICA PO SCH ×2 (09:00→20:50)
[2019-06-12] MEDS: ASPIRIN PO SCH (11:11)
[2019-06-12] MEDS: EXELON 9.5MG/24HRS TD SCH (11:11)
[2019-06-12] MEDS: CRESTOR PO SCH (11:11)
[2019-06-12] MEDS: PLAVIX PO SCH (11:12)
[2019-06-12] MEDS: TOPROL XL PO SCH (11:12)
[2019-06-12] MEDS: NAMENDA PO SCH ×2 (11:13→20:50)
[2019-06-12] MEDS: COLACE PO SCH (11:13)
[2019-06-12] MEDS: ALDACTONE PO SCH (11:13)
[2019-06-12] MEDS: PATIENT'S OWN MED PO SCH ×2 (11:13→21:36)
--- NOTE | 2019-06-12 11:13 | PROGRESS NOTE ---
DATE: 06/12/2019 SUBJECTIVE: No acute events overnight. No big changes compared with yesterday. She seems to be moving a little bit more the right lower extremity and right upper extremities but the speech is about the same. OBJECTIVE: Vital Signs: Temperature 98.2 degrees, pulse 88, respiratory rate 18, blood pressure 166/80, oxygen saturation 97% on 2 L of nasal cannula. HEENT: Head normocephalic, no trauma. PERRLA. Neck: Supple. No JVD. No JVD. No masses. Central trachea. Chest: Clear to auscultation. No wheezing. No rales. Abdomen: Soft, nontender, nondistended. No hepatosplenomegaly. Extremities: No edema, no clubbing, no cyanosis. Neurological: The patient is awake, she is alert. She is answering to my questions and following commands. She does have right-sided weakness, I would say 3/5 with stable sensation. She has slower speech. LABORATORY DATA: Sodium 139, potassium 3.9, chloride 102, bicarbonate 25, BUN 16, creatinine 1, glucose 157, calcium 8.6. ASSESSMENT AND PLAN: 1. Acute stroke at the level of the periventricular and basal ganglia. This indicates the recent microvascular infarction. There is an extensive severe white matter with adenosis from chronic microvascular ischemia but no hemorrhage or mass. For now, we will continue with same management. I do believe this patient needs to go to a rehab center, hopefully will be next Friday. 2. Baseline dementia, aware. Continue with same management. 3. Polypharmacy. We will try to monitor her medications. 4. Prior history of cerebrovascular accident in 2012, aware. 5. Generalized weakness which is not new, but now she has right-sided weakness. 6. Peripheral neuropathy. Continue with Lyrica. 7. As per the daughter she has congestive heart failure, aware. We will avoid fluid overload. She seems to be stable gentle hydration with normal saline, which I will stop since she is tolerating p.o. already and her kidney function came back to her baseline. 8. Urinary tract infection. Due to extended-spectrum beta-lactamase Escherichia coli, she has been placed on ertapenem. We will monitor. I am not sure if this patient is symptomatic or not. cc: Kunal Petersen MD
[2019-06-12] MEDS: TEARISOL OPH SOLUTION BOTH EYES SCH (11:14)
[2019-06-12] MEDS: INVANZ 1 GM/NS 1 GM/50 ML IVPB IV SCH (11:22)
[2019-06-12] MEDS: REQUIP PO SCH (20:50)
[2019-06-12] MEDS: DESYREL PO SCH (20:50)
[2019-06-12] MEDS: MELATONIN PO SCH (20:50)
[2019-06-13] MEDS: HUMALOG SUBQ SCH ×4 (06:26→21:06)
[2019-06-13] MEDS: CRESTOR PO SCH (09:13)
[2019-06-13] MEDS: LYRICA PO SCH ×2 (09:13→20:54)
[2019-06-13] MEDS: EXELON 9.5MG/24HRS TD SCH (09:13)
[2019-06-13] MEDS: COLACE PO SCH (09:13)
[2019-06-13] MEDS: ASPIRIN PO SCH (09:13)
[2019-06-13] MEDS: PLAVIX PO SCH (09:13)
[2019-06-13] MEDS: PATIENT'S OWN MED PO SCH ×2 (09:14→21:05)
[2019-06-13] MEDS: TEARISOL OPH SOLUTION BOTH EYES SCH (09:14)
[2019-06-13] MEDS: NAMENDA PO SCH ×2 (09:14→20:54)
[2019-06-13] MEDS: INVANZ 1 GM/NS 1 GM/50 ML IVPB IV SCH (09:14)
[2019-06-13] MEDS: TOPROL XL PO SCH (09:14)
[2019-06-13] MEDS: ALDACTONE PO SCH (09:14)
--- NOTE | 2019-06-13 14:04 | PROGRESS NOTE ---
DATE: 06/13/2019 SUBJECTIVE: No acute events overnight. No big changes compared with yesterday. Hopefully, this patient can be discharged tomorrow. OBJECTIVE: Vital Signs: Temperature 98.1 degrees, pulse 76, respiratory rate 16, blood pressure 128/59, oxygen saturation 96 on room air. HEENT: Head normocephalic, no trauma. PERRLA. Neck: Supple. No JVD. No masses. Central trachea. Chest: Clear to auscultation. No wheezing. No rales. Abdomen: Soft, nontender, nondistended. No hepatosplenomegaly. Extremities: No edema. No clubbing. No cyanosis. Neurological: The patient is sleepy, but arousable. She is following commands for me. She is answering to some of my questions. She does have right-sided weakness, 3/5 with stable sensation. She has slurred speech and facial weakness. LABORATORY DATA: Glucose 178. ASSESSMENT AND PLAN: 1. Acute stroke at the level of the periventricular and basal ganglia. This indicates a recent microvascular infarction. There is an extensive severe white matter with adenosis from chronic microvascular ischemia but no hemorrhage or mass. For now, we will continue with the same management. This patient needs to go to a rehab center hopefully tomorrow. 2. Baseline dementia, aware. Continue with same management. 3. Polypharmacy. We will try to monitor her medications. 4. Prior history of cerebrovascular accident in 2012, aware. 5. Generalized weakness, which is not new, but she has right-sided weakness at this moment. 6. Peripheral neuropathy. Continue with Lyrica. 7. As per the daughter, she has congestive heart failure, aware. We will avoid fluid overload. She seems to be stable. She received some hydration with normal saline, which has been stopped already. She is tolerating p.o., but I do believe she needs some help to do that. 8. Urinary tract infection due to extended-spectrum beta-lactamase Escherichia coli. She has been placed on ertapenem. We will monitor. I am not sure if this patient is symptomatic or not. If she is not symptomatic, I will stop the treatment. cc: Kunal Petersen MD
[2019-06-13] MEDS: REQUIP PO SCH (20:54)
[2019-06-13] MEDS: MELATONIN PO SCH (20:54)
[2019-06-13] MEDS: DESYREL PO SCH (20:55)
[2019-06-14 05:24] LABS: BASO# 0.01 X1000 (0.0-0.2); BASO% 0.2 % (0.0-0.8); EOS# 0.37 X1000 (0.0-0.7); EOS% 6.8 % (0.0-10.0); HEMATOCRIT 37.7 % (37.0-47.0); LYMPH# 0.77 X1000 (1.2-3.4); LYMPH% 14.2 % (20.5-51.1); MCH 29.1 PG (27-31); MCHC 31.8 g/dL (33-37); MCV 91.3 FL (81-99); MONO# 0.71 X1000 (0.11-0.59); MONO% 13.1 % (1.7-9.3); MPV 10.7 FL (7.4-10.4); NEUT# 3.58 X1000 (1.4-6.5); NEUT% 65.7 % (42.2-75.2); PLT 166 X1000 (130-400); RBC 4.13 XMIL (4.2-5.4); WBC 5.44 X1000 (4.8-10.8)
[2019-06-14 05:44] LABS: CALCIUM 8.8 mg/dL (8.8-10.2); CREATININE 1.2 mg/dL (0.5-0.9); POTASSIUM 4.5 mmol/L (3.5-5.1)
[2019-06-14] MEDS: HUMALOG SUBQ SCH ×2 (06:46→12:36)
[2019-06-14 08:29] LABS: PROTIME 13.3 Seconds (11.0-16.0); PTT 29.4 Seconds (22.3-41.8)
[2019-06-14] MEDS: INVANZ 1 GM/NS 1 GM/50 ML IVPB IV SCH (09:07)
[2019-06-14] MEDS: ASPIRIN PO SCH (09:13)
[2019-06-14] MEDS: PLAVIX PO SCH (09:13)
[2019-06-14] MEDS: CRESTOR PO SCH (09:14)
[2019-06-14] MEDS: TOPROL XL PO SCH (09:14)
[2019-06-14] MEDS: ALDACTONE PO SCH (09:14)
[2019-06-14] MEDS: EXELON 9.5MG/24HRS TD SCH (09:14)
[2019-06-14] MEDS: COLACE PO SCH (09:14)
[2019-06-14] MEDS: LYRICA PO SCH (09:14)
[2019-06-14] MEDS: NAMENDA PO SCH (09:14)
[2019-06-14] MEDS: TEARISOL OPH SOLUTION BOTH EYES SCH (09:15)
[2019-06-14] MEDS: PATIENT'S OWN MED PO SCH (09:15)
[2019-06-14] MEDS ORDERED: NS 250 ML ONE (09:58)
--- NOTE | 2019-06-14 11:14 | DISCHARGE SUMMARY ---
ADMISSION DATE: 06/10/2019 DISCHARGE DATE: 06/14/2019 ADMISSION DIAGNOSES: 1. Acute left-sided cerebrovascular accident. 2. Urinary tract infection. 3. Hypertension. 4. Diabetes mellitus. 5. Hyperlipidemia. DISCHARGE DIAGNOSES: 1. Acute stroke at the level of the periventricular and basal ganglia with right-sided residual weakness. 2. Baseline dementia. 3. Polypharmacy. 4. Prior history of cerebrovascular accident in 2012. 5. Generalized weakness with added right-sided weakness. 6. Peripheral neuropathy. 7. Congestive heart failure, stable. 8. Urinary tract infection due to extended spectrum beta lactamase Escherichia coli. CONSULTATIONS: Neurology, PICC line placement, and social service. SURGERIES AND PROCEDURES: None. HOSPITAL COURSE: Ms. Eleanor Zepeda is an 84-year-old, female with a history of hypertension, CAD, diabetes mellitus type 2, history of CVA with right-sided deficits at that time, vascular dementia. Presented from [facility] with a new onset right-sided facial droop and expressive aphasia that apparently started the day before presentation. She was sent to the emergency room for evaluation. CT did reveal that there was a new left-sided CVA. Originally was concern for possible subdural hematoma. The ER provider spoke with neurosurgery at [facility], Dr. Carlton, who apparently stated there was no need for surgery and that it was not a subdural hematoma. He also spoke with Dr. Fierro at [facility], who is also a neurologist, who advised regular admission to [facility] for routine stroke workup. The patient was transferred to the medical floor for evaluation and treatment as the patient was clinically stable. During the stay, she continued to be weaker on the right side. There was already a right-sided residual from a previous stroke. She was also found to have a urinary tract infection that was ESBL positive with E. coli. She was started on ertapenem. She was supposed to get 14 days' worth. Today is day 3. She is going to be getting rehab, speech therapy, occupational therapy. Also will have a PICC line placed for IV antibiotic therapy. Currently on isolation for urinary tract infection that is ESBL positive E. coli. DISCHARGE VITAL SIGNS: Temperature 98.0 degrees, heart rate 74, respiratory rate 16, blood pressure 123/65, O2 saturation 98% on 2 L. LABORATORY DATA: White blood cells 5000, hemoglobin 12, hematocrit 37, platelet count is 166,000. INR is 1, PTT is 29.4. Sodium 138, potassium 4.5, BUN 22, creatinine is 1.2, glucose 160, calcium 8.8. Urine was E. coli positive, ESBL positive, resistance to gentamicin, levofloxacin, and tobramycin. She will be on ertapenem for this. PERTINENT IMAGING: On 06/10/2019, head and cervical spine CT. No hemorrhage. Chronic microvascular ischemic changes and old lacunar infarcts. Cervical spine, no acute injury. Chest x-ray, mild lingular scarring and borderline cardiomegaly, otherwise negative for acute findings. Echocardiogram, ejection fraction was 60%. There is mild sclerosis of the aortic valve but normal valve opening. The gradient is 10 mmHg. Mild aortic regurgitation, trace mitral regurgitation. PA pressure is systolic of 38 mmHg. Doppler suggests that there is a grade 1 left ventricular diastolic dysfunction and normal CVP. On 06/11/2019, chest x-ray, no pneumonia. On 06/11/2019, brain MRI, recent left periventricular and basal ganglia white matter microvascular infarction. There is also advanced cerebral chronic microvascular ischemia. EKG on the 10 of June, sinus rhythm, rate 71, QTc was 439. DISCHARGE MEDICATIONS: New medications include: 1. Lidocaine ointment 4 times daily. 2. Ropinirole HCL 2 mg p.o. nightly. 3. Aspirin 325 mg p.o. daily. 4. Rosuvastatin 5 mg p.o. daily. 5. Trazodone 100 mg p.o. daily. 6. Lyrica 200 mg p.o. twice daily. 7. Namenda 5 mg p.o. twice daily. 8. Rivastigmine 9.5 mg daily patch. 9. Melatonin 3 mg p.o. nightly. 10. Artificial Tears to both eyes daily. 11. Clonidine 0.1 mg p.o. t.i.d. p.r.n. for systolic blood pressure. 12. Colace 100 mg p.o. daily. 13. Insulin Levemir 12 units subcutaneous daily. 14. Liquid protein fortifier 30 mL p.o. twice daily. 15. Lisinopril/hydrochlorothiazide 10 mg p.o. daily, so may be a half tablet daily. 16. Metoprolol succinate 25 mg extended release daily. 17. Plavix 75 mg p.o. daily. 18. Albuterol, ProAir inhaled daily p.r.n. 19. Spironolactone 25 mg p.o. daily. 20. Tessalon 100 mg p.o. t.i.d. p.r.n. 21. Tylenol 650 mg p.o. p.r.n. every 4 hours p.r.n. for 100.1 temperature or greater. DIET: Diabetic and pureed. DISCHARGE ACTIVITY: As tolerated but with physical therapy. PHYSICIAN FOLLOWUP: PCP, Celeste Montejo. May also follow up with Dr. Brumfield, neurology. DISCHARGE INSTRUCTIONS: The patient will complete treatment of ertapenem for 14 days. Today is #3 of treatment. Needs isolation until the treatment is completed. Physical therapy, occupational therapy, speech therapy, aspiration precautions, and the PICC line can be pulled out at the end of treatment with ertapenem. DISCHARGE DISPOSITION: [facility]. Dictated by KHARI Concepcion for Kuanl Petersen MD cc: KHARI Concepcion MD
[2019-06-14] MEDS ORDERED: MYCOSTATIN SUSP PO SCH (13:00)
[2019-06-14 13:10] VITALS: BP 125/69
--- NOTE | 2019-06-15 09:13 | VASCULAR LAB ---
DATE: 06/10/2019 PROCEDURE PERFORMED: Bilateral carotid duplex. RN DIALYSIS: Mickie. REQUESTING PHYSICIAN: Georgiana. INDICATION: CVA. FINDINGS: In the right carotid artery, there are some mild atherosclerotic changes starting in the common carotid artery, extending more focally, involving the proximal internal carotid artery but there was no turbulence of flow or elevation of velocity. In the left, there was some mild atherosclerotic change noted in the carotid bulb. Vertebrals were antegrade bilaterally. SUMMARY: Mild atherosclerotic changes with estimated 0-39% stenosis bilaterally and antegrade vertebrals. cc: MD Edson Delgado CRNP
== END 2019-06-14 15:11 | DRG 65 ==
LOC: SUPCPDRO → ED 03:27 → SUATTDRO 06:37 → 1N 06:37
PROVIDERS: ATTEND Internal Medicine

== ENCOUNTER 2019-07-24 10:04 | Inpatient (IN) ==
[2019-07-24 11:06] LABS: BASO# 0.01 X1000 (0.0-0.2); BASO% 0.1 % (0.0-0.8); EOS# 0.26 X1000 (0.0-0.7); EOS% 3.4 % (0.0-10.0); HEMATOCRIT 42.4 % (37.0-47.0); HEMOGLOBIN 14.2 g/dL (12.0-16.0); LYMPH# 1.29 X1000 (1.2-3.4); LYMPH% 16.7 % (20.5-51.1); MCH 29.5 PG (27-31); MCHC 33.5 g/dL (33-37); MONO% 6.5 % (1.7-9.3); MPV 12.7 FL (7.4-10.4); NEUT# 5.65 X1000 (1.4-6.5); NEUT% 73.3 % (42.2-75.2); PLT 108 X1000 (130-400); RBC 4.82 XMIL (4.2-5.4); RDW 13.5 % (11.5-14.5); WBC 7.71 X1000 (4.8-10.8)
[2019-07-24 11:33] LABS: INR 1.05; PROTIME 13.8 Seconds (11.0-16.0)
[2019-07-24 11:34] LABS: PTT 30.6 Seconds (22.3-41.8)
[2019-07-24 12:18] LABS: ALB/GLOB RATIO 1.5; ALBUMIN 3.7 g/dL (3.5-5.0); CALCIUM 10.1 mg/dL (8.8-10.2); CREATININE 1.5 mg/dL (0.5-0.9); POTASSIUM 5.2 mmol/L (3.5-5.1); TOTAL BILIRUBIN 0.59 mg/dL (0.20-1.00); TOTAL PROTEIN 6.2 g/dL (6.3-8.3)
[2019-07-25 02:55] LABS: URINE SOURCE CATH
[2019-07-25 02:59] LABS: BILIRUBIN URINE NEGATIVE (NEGATIVE); BLOOD URINE TRACE (NEGATIVE); COLOR ORANGE; GLUCOSE URINE NEGATIVE (NEGATIVE); KETONE URINE NEGATIVE (NEGATIVE); LEUKOCYTES URINE LARGE (NEGATIVE); NITRITE URINE NEGATIVE (NEGATIVE); TURBIDITY URINE TURBID (CLEAR); UROBILINOGEN URINE NORMAL (NORMAL)
[2019-07-25 03:09] LABS: PROTEIN URINE 300 mg/dL (NEGATIVE); SP GRAVITY URINE 1.018
[2019-07-25 03:44] LABS: UR EPITHELIAL CELLS >10 /HPF (<10); URINE BACTERIA 4+ /HPF; URINE RBC <10 /HPF (<10); URINE WBC TNTC /HPF (<10)
[2019-07-25 03:59] LABS: URINE CASTS NONE SEEN; URINE CRYSTALS NONE SEEN; URINE SMALL ROUND CELLS NONE SEEN; URINE YEAST PRESENT
[2019-07-25 04:16] LABS: HEMATOCRIT 37.4 % (37.0-47.0); HEMOGLOBIN 12.5 g/dL (12.0-16.0); MCH 29.4 PG (27-31); MCHC 33.4 g/dL (33-37); MPV 12.2 FL (7.4-10.4); RBC 4.25 XMIL (4.2-5.4); RDW 13.2 % (11.5-14.5); WBC 5.33 X1000 (4.8-10.8)
[2019-07-25 04:44] LABS: ALB/GLOB RATIO 1.5; ALBUMIN 3.4 g/dL (3.5-5.0); CALCIUM 9.6 mg/dL (8.8-10.2); CREATININE 1.4 mg/dL (0.5-0.9); POTASSIUM 4.5 mmol/L (3.5-5.1); TOTAL BILIRUBIN 0.71 mg/dL (0.20-1.00); TOTAL PROTEIN 5.6 g/dL (6.3-8.3)
[2019-07-26 06:53] LABS: ALBUMIN 2.9 g/dL (3.5-5.0); CALCIUM 8.7 mg/dL (8.8-10.2); CREATININE 1.3 mg/dL (0.5-0.9); PHOSPHORUS 2.9 mg/dL (2.7-4.5); POTASSIUM 4.3 mmol/L (3.5-5.1)
[2019-07-27 06:56] LABS: EOS# 0.24 X1000 (0.0-0.7); EOS% 6.4 % (0.0-10.0); HEMATOCRIT 35.1 % (37.0-47.0); HEMOGLOBIN 11.6 g/dL (12.0-16.0); LYMPH# 0.87 X1000 (1.2-3.4); LYMPH% 23.3 % (20.5-51.1); MCH 29.4 PG (27-31); MCV 88.9 FL (81-99); MONO# 0.37 X1000 (0.11-0.59); MONO% 9.9 % (1.7-9.3); NEUT# 2.26 X1000 (1.4-6.5); NEUT% 60.4 % (42.2-75.2); PLT 103 X1000 (130-400); RBC 3.95 XMIL (4.2-5.4); RDW 13.1 % (11.5-14.5); WBC 3.74 X1000 (4.8-10.8)
[2019-07-27 07:21] LABS: ALBUMIN 2.8 g/dL (3.5-5.0); CALCIUM 8.8 mg/dL (8.8-10.2); CREATININE 1.2 mg/dL (0.5-0.9); PHOSPHORUS 2.6 mg/dL (2.7-4.5); POTASSIUM 4.2 mmol/L (3.5-5.1)
[2019-07-28 08:17] VITALS: BP 130/64
== END 2019-07-28 12:59 | DRG 178 ==
LOC: SUPCPDRO → ED 10:04 → EDIPHOLD 10:04 → SUATTDRO 16:22 → OBSVTOIN 16:22 → 4N 18:59
PROVIDERS: ATTEND Emergency Medicine